=== PATIENT | male | born 1990 | race Caucasian/White ===

== ENCOUNTER → 2017-08-12 | Day surgery (SDC) | payer MEDICAID ==
[~2017-08-12] MED LIST: Bupivacaine 0.5% 30 ML SDV ONE; Calcium Chloride 10% 1 GM/10 ML Syringe ONE; Etomidate 2 MG/ML 20 ML SDV IVPUSH ONE; Ketamine 500 mg/10 ML MDV ONE; Lactated Ringers 1,000 ML ONE; Lidocaine 1% with EPINEPHrine 1:100,000 20 ML MDV ONE; Midazolam 1 MG/ML 2 ML SDV ONE; Ondansetron 4 MG/2 ML SDV IVPUSH ONE; Ondansetron 4 MG/2 ML SDV ONE; Piperacillin/Tazobactam 4.5 GM in Sodium Chloride 0.9% 100 ML IV ONE; Propofol 200 MG/20 ML SDV ONE; Rocuronium 50 MG/5 ML Vial ONE; Sodium Chloride 0.9% 1,000 ML IV ONE; Sodium Chloride 0.9% 1,000 ML ONE; Sodium Chloride 0.9% 250 ML ONE; Succinylcholine/Normal Saline 100 MG/5 ML Syringe ONE; fentaNYL 100 MCG/2 ML SDV IVPUSH ONE; fentaNYL 100 MCG/2 ML SDV ONE; fentaNYL 250 MCG/5 ML SDV ONE
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
--- NOTE | 2017-08-12 22:42 | PCM.PREANE ---
Preanesthetic Assessment - Anesthesia/Transfusion/Family Hx Anesthesia History: Unknown Transfusion History: Unknown Intubation History: Unknown - Review of Systems General: No Symptoms (ETOH on board currently, and patient admits to smoking heroin, and denies needle use.) Pulmonary: No Symptoms Cardiovascular: No Symptoms Gastrointestinal: Abdominal Pain, Nausea, Vomiting Neurological: No Symptoms Other: Reports: None, Anxiety - Physical Assessment NPO Status Date: 08/12/17 NPO Status Time: 19:30 Pulse: 99 O2 Sat by Pulse Oximetry: 100 Respiratory Rate: 16 Blood Pressure: 138/82 Temperature: 35.5 C Vital Signs: Last Vital Signs Temp 35.6 C 08/12/17 19:32 Pulse 99 08/12/17 19:32 Resp 16 08/12/17 19:32 BP 138/82 08/12/17 19:32 Pulse Ox 100 08/12/17 19:32 Weight: 63.503 kg ASA Class: 5E Emergency Mental Status: Alert & Oriented x3 Airway Class: Mallampati = 2 Dentition: Reports: Normal Dentition, Caries Thyro-Mental Finger Breadths: 3 Mouth Opening Finger Breadths: 3 ROM/Head Extension: Full Lungs: Clear to Auscultation, Normal Respiratory Effort Cardiovascular: Regular Rate, Regular Rhythm, No Murmurs - Lab Values: Laboratory Last Values WBC 16.18 K/mm3 (4.23-9.07) H 08/12/17 19:30 RBC 3.70 M/mm3 (4.63-6.08) L 08/12/17 19:30 Hgb 11.8 gm/L (13.7-17.5) L 08/12/17 19:30 Hct 35.3 % (40.1-51.0) L 08/12/17 19:30 MCV 95.4 fl (79.0-92.2) H 08/12/17 19:30 MCH 31.9 pg (25.7-32.2) 08/12/17 19:30 MCHC 33.4 g/dl (32.2-35.5) 08/12/17 19:30 RDW Std Deviation 43.3 fL (35.1-43.9) 08/12/17 19:30 Plt Count 243 K/mm3 (163-337) 08/12/17 19:30 MPV 9.3 fl (9.4-12.3) L 08/12/17 19:30 Neutrophils % (Manual) 50 % (40-60) 08/12/17 19:30 Band Neutrophils % 0 % (0-10) 08/12/17 19:30 Lymphocytes % (Manual) 42 % (20-40) H 08/12/17 19:30 Atypical Lymphs % 0 % 08/12/17 19:30 Monocytes % (Manual) 6 % (2-10) 08/12/17 19:30 Eosinophils % (Manual) 2 % (0.8-7.0) 08/12/17 19:30 Basophils % (Manual) 0 (0.2-1.2) L 08/12/17 19:30 Platelet Estimate Adequate 08/12/17 19:30 Plt Morphology Comment Normal 08/12/17 19:30 RBC Morph Comment Normal 08/12/17 19:30 PT 10.4 SECONDS (9.5-12.1) 08/12/17 19:30 INR 0.95 08/12/17 19:30 APTT 22 SECONDS (24-31) L 08/12/17 19:30 Fibrinogen 191 mg/dL (187-446) 08/12/17 19:30 Sodium 148 mEq/L (136-145) H 08/12/17 19:30 Potassium 3.3 mEq/L (3.5-5.1) L 08/12/17 19:30 Chloride 113 mEq/L (98-107) H 08/12/17 19:30 Carbon Dioxide 18 mEq/L (21-32) L 08/12/17 19:30 Anion Gap 20.3 (5-15) H 08/12/17 19:30 BUN 15 mg/dL (7-18) 08/12/17 19:30 Creatinine 1.0 mg/dL (0.7-1.3) 08/12/17 19:30 Est Cr Clr Drug Dosing TNP 08/12/17 19:30 Estimated GFR (MDRD) > 60 mL/min (>60) 08/12/17 19:30 BUN/Creatinine Ratio 15.0 (14-18) 08/12/17 19:30 Glucose 131 mg/dL (74-106) H 08/12/17 19:30 Calcium 8.1 mg/dL (8.5-10.1) L 08/12/17 19:30 Total Bilirubin 0.1 mg/dL (0.2-1.0) L 08/12/17 19:30 AST 10 U/L (15-37) L 08/12/17 19:30 ALT 13 U/L (16-63) L 08/12/17 19:30 Alkaline Phosphatase 64 U/L (46-116) 08/12/17 19:30 Total Protein 5.5 g/dl (6.4-8.2) L 08/12/17 19:30 Albumin 3.0 g/dl (3.4-5.0) L 08/12/17 19:30 Globulin 2.5 gm/dL 08/12/17 19:30 Albumin/Globulin Ratio 1.2 (1-2) 08/12/17 19:30 Amylase 43 U/L (25-115) 08/12/17 19:30 Ethyl Alcohol 0.12 gm% (0.00) 08/12/17 19:30 Blood Type A POSITIVE 08/12/17 19:30 Gel Antibody Screen Negative 08/12/17 19:30 Crossmatch See Detail 08/12/17 19:30 - Allergies Allergies/Adverse Reactions: Allergies Allergy/AdvReac Type Severity Reaction Status Date / Time No Known Allergies Allergy Verified 08/12/17 20:40 - Blood Blood Available: Yes Product(s) Available: PRBC, FFP - Anesthesia Plan Pre-Op Medication Ordered: None - Acknowledgements Anesthesia Type Planned: General Anesthesia Pt an Appropriate Candidate for the Planned Anesthesia: Yes Alternatives and Risks of Anesthesia Discussed w Pt/Guardian: Yes Pt/Guardian Understands and Agrees with Anesthesia Plan: Yes PreAnesthesia Questionnaire - Past Health History Medical/Surgical History: Denies Medical/Surgical History Psychiatric History: Reports: Addiction - SUBSTANCE USE Days Per Week of Alcohol Use: 7 Number of Drinks Per Day: 10 Total Drinks Per Week: 70 Recreational Drug Use History: Yes Recreational Drug Type: Reports: Heroin - HOME MEDS Home Medications: Home Meds . [No Known Home Meds] 08/12/17 [History] - CURRENT (IN HOUSE) MEDS Current Meds: Current Medications Discontinued Medications Bupivacaine HCl (Marcaine 0.5%) Confirm Administered Dose 30 ml .ROUTE .STK-MED ONE Stop: 08/12/17 19:50 Calcium Chloride (Calcium Chloride 10%) Confirm Administered Dose 1 gm .ROUTE .STK-MED ONE Stop: 08/12/17 22:32 Etomidate (Amidate) Confirm Administered Dose 40 mg IVPUSH .ST-MED ONE Stop: 08/12/17 20:38 Fentanyl (Sublimaze) Confirm Administered Dose 250 mcg .ROUTE .STK-MED ONE Stop: 08/12/17 20:21 Lactated Ringer's (Ringers, Lactated) Confirm Administered Dose 1,000 mls @ as directed .ROUTE .ST-MED ONE Stop: 08/12/17 20:20 Lactated Ringer's (Ringers, Lactated) Confirm Administered Dose 1,000 mls @ as directed .ROUTE .ST-MED ONE Stop: 08/12/17 21:27 Lactated Ringer's (Ringers, Lactated) Confirm Administered Dose 1,000 mls @ as directed .ROUTE .ST-MED ONE Stop: 08/12/17 21:27 Lactated Ringer's (Ringers, Lactated) Confirm Administered Dose 1,000 mls @ as directed .ROUTE .ST-MED ONE Stop: 08/12/17 21:27 Sodium Chloride (Normal Saline) Confirm Administered Dose 1,000 mls @ as directed .ROUTE .ST-MED ONE Stop: 08/12/17 21:27 Lactated Ringer's (Ringers, Lactated) Confirm Administered Dose 1,000 mls @ as directed .ROUTE .ST-MED ONE Stop: 08/12/17 22:07 Sodium Chloride (Normal Saline) Confirm Administered Dose 1,000 mls @ as directed .ROUTE .ST-MED ONE Stop: 08/12/17 22:35 Ketamine HCl (Ketalar) Confirm Administered Dose 500 mg .ROUTE .ST-MED ONE Stop: 08/12/17 21:34 Lidocaine/Epinephrine (Xylocaine 1% With Epinephrine 1:100,000) Confirm Administered Dose 20 ml .ROUTE .ST-MED ONE Stop: 08/12/17 19:50 Midazolam HCl (Versed 1 Mg/Ml) Confirm Administered Dose 2 mg .ROUTE .STK-MED ONE Stop: 08/12/17 20:20 Midazolam HCl (Versed 1 Mg/Ml) Confirm Administered Dose 2 mg .ROUTE .ST-MED ONE Stop: 08/12/17 21:35 Ondansetron HCl (Zofran) Confirm Administered Dose 4 mg .ROUTE .STK-MED ONE Stop: 08/12/17 20:20 Propofol (Diprivan 20 Ml) Confirm Administered Dose 200 mg .ROUTE .STK-MED ONE Stop: 08/12/17 20:20 Rocuronium [place] (Zemuron) Confirm Administered Dose 50 mg .ROUTE .STK-MED ONE Stop: 08/12/17 20:20 Rocuronium [place] (Zemuron) Confirm Administered Dose 50 mg .ROUTE .STK-MED ONE Stop: 08/12/17 22:35 Succinylcholine Chloride (Succinylcholine In Ns Pf) Confirm Administered Dose 200 mg .ROUTE .STK-MED ONE Stop: 08/12/17 20:20
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
--- NOTE | 2017-08-13 00:04 | PCM.POSTAN ---
POST ANESTHESIA ASSESSMENT - MENTAL STATUS Mental Status: Alert - VITAL SIGNS Pulse Rate: 95 SaO2: 100 Resp Rate: 16 Blood Pressure: 140/60 Temperature: 36.8 C - RESPIRATORY Respiratory Status: Respiratory Rate WNL, Airway Patent, O2 Saturation Stable, Supplemental Oxygen - CARDIOVASCULAR CV Status: Pulse Rate WNL, Blood Pressure Stable - GASTROINTESTINAL GI Status: No Symptoms - POST OP HYDRATION Hydration Status: Adequate & Stable
== END ==
LOC: JD.ED 19:32 → JD.SDS 20:06
PROVIDERS: ATTEND Student in an Organized Health Care Education/Training Program
DX: S31.61 Laceration without foreign body of abdominal wall with penetration into peritoneal cavity (principal); S36.33XA Laceration of stomach, initial encounter; S36.430A Laceration of duodenum, initial encounter; T79.4XXA Traumatic shock, initial encounter; R00.0 Tachycardia, unspecified; I95.9 Hypotension, unspecified; F10.920 Alcohol use, unspecified with intoxication, uncomplicated; Y90.0 Blood alcohol level of less than 20 mg/100 ml; X99.1XXA Assault by knife, initial encounter
CPT/HCPCS: 36415; 43840; 80053; 82150; 85025; 85384; 85610; 85730; 96365; 96375; 99291; G0480; J0330; J2250; J2405; J2543; J3010; J7030; J7040; J7120; P9016; P9017; 00790; 36430; 86850; 86900; 86901; 86922; 99285; J2704

== ENCOUNTER 2017-08-25 21:49 | Emergency (ER) | payer MEDICAID ==
[2017-08-25] MEDS ORDERED: Iopamidol 755 MG/ML 50 ML Bottle IVPUSH ONE (23:23)
[2017-08-25] MEDS ORDERED: Iopamidol 755 Mg/ML 100 ML Bottle IVPUSH ONE (23:23)
[2017-08-25] MEDS ORDERED: Sodium Chloride 0.9% 1,000 ML IV SCH (23:30)
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
[2017-08-25] MEDS ORDERED: Ibuprofen 600 MG Tab PO ONE (23:59)
== END 2017-08-26 00:03 | disposition left against medical advice (07) ==
LOC: JD.ED 21:49 → SUPCPDRO 21:49 → JD.ED 08-26 00:03
DX: I74.8 Embolism and thrombosis of other arteries (principal); Z98.890 Other specified postprocedural states
CPT/HCPCS: 99284; A9270; 99283